=== PATIENT | female | born 1965 | race Caucasian/White ===

== ENCOUNTER 2018-06-16 22:13 | Emergency (ER) | payer SELFPAY ==
[~2018-06-16] VITALS: Ht 160 cm; Wt 64.7 kg
[2018-06-16 22:21] VITALS: Ht 160 cm; Wt 64.7 kg
== END 2018-06-16 23:52 | disposition left against medical advice (07) ==
LOC: E/R 22:13
DX: Z53.21 Procedure and treatment not carried out due to patient leaving prior to being seen by health care provider (principal)